=== PATIENT | male | born 1960 | race Caucasian/White ===

== ENCOUNTER 2017-01-14 09:10 | Day surgery (SDC) | payer OTHER ==
[2017-01-14 09:45] VITALS: BMI 26.4
[2017-01-14] MEDS ORDERED: LIDOCAINE HCL 2% 100 MG/5 ML DISP.SYRIN ONE (10:06)
[2017-01-14] MEDS ORDERED: PROPOFOL 20 ML ONE ×2 (10:06)
[2017-01-14 11:04] VITALS: TEMP 98
[2017-01-14 12:00] VITALS: BP 110/72; PULSE 68
--- NOTE | 2017-01-15 16:35 | PATH ---
Surgical Pathology Report Patient Name: [facility]. Rec. #: [id number] /Age/Gender: 1960 (Age: 56) / M Account: [id number] Location: U-ENDOSCOPY Taken: 01/14/2017 Received: 01/14/2017 Reported: 01/15/2017 Physicians: Joyce Badillo M.D. Specimen(s) Received A: BX DISTAL TRANSVERSE COLON POLYP B: PROXIMAL TRANSVERSE COLON POLYP C: BX RIGHT COLON POLYPS Clinical History Adenoma surveillance Diverticulosis, polyps Final Diagnosis A. DISTAL TRANSVERSE COLON, POLYP, BIOPSY: TUBULAR ADENOMA WITH ASSOCIATED BENIGN/REACTIVE LYMPHOID AGGREGATE. B. PROXIMAL TRANSVERSE COLON, POLYP, BIOPSY: COLONIC MUCOSA SHOWING MILD SURFACE HYPERPLASTIC CHANGE. C. RIGHT COLON, POLYPS, BIOPSY: TUBULAR ADENOMAS (2) WITH BENIGN/REACTIVE LYMPHOID AGGREGATES. Electronically Signed Jessica Pappas M.D. Gross Description A. Received in formalin, labeled "biopsy distal transverse colon polyp" is a kennedy, irregular portion of soft tissue measuring 0.2 cm. in greatest dimension. The specimen is submitted in toto in one cassette. B. Received in formalin, labeled "proximal transverse colon polyp" is a kennedy, irregular portion of soft tissue measuring 0.3 cm. in greatest dimension. The specimen is submitted in toto in one cassette. C. Received in formalin, labeled "biopsy right colon polyps" are 2 kennedy, irregular portions of soft tissue measuring 0.2-0.3 cm. in greatest dimension. The specimens are submitted in toto in one cassette. ELIDA/01/14/2017 [facility]/01/14/2017
== END 2017-01-14 12:00 | disposition home or self-care (01) ==
LOC: JASU-ENDO 09:10
PROVIDERS: ATTEND Internal Medicine Gastroenterology
PROC: 0DBK8ZX Excision of Ascending Colon, Via Natural or Artificial Opening Endoscopic, Diagnostic (ICD-10-PCS; 2017-01-14)
PROC: 0DBL8ZX Excision of Transverse Colon, Via Natural or Artificial Opening Endoscopic, Diagnostic (ICD-10-PCS; principal; 2017-01-14 10:00)
DX: Z86.010 Personal history of colon polyps (principal); D12.2 Benign neoplasm of ascending colon; D12.3 Benign neoplasm of transverse colon; K57.30 Diverticulosis of large intestine without perforation or abscess without bleeding
CPT/HCPCS: 88305-TC